=== PATIENT | female | born 1990 | race Caucasian/White ===

== ENCOUNTER 2022-01-01 07:00 | Observation (INO) | payer OTHER, MEDICAID ==
[~2022-01-01] VITALS: Ht 165.1 cm; Wt 68.9 kg
== END 2022-01-01 09:30 | disposition home or self-care (01) ==
LOC: 8 EST LDRP 07:00 → OB TRIAGE 08:37
PROVIDERS: ADMIT Specialist; ATTEND Specialist
DX: O62.9 Abnormality of forces of labor, unspecified (principal); Z3A.37 37 weeks gestation of pregnancy
CPT/HCPCS: 59025; G0378; 99281

== ENCOUNTER 2022-01-26 21:09 | Inpatient (IN) | payer OTHER, MEDICAID ==
[~2022-01-26] VITALS: Ht 165.1 cm; Wt 71.2 kg
[2022-01-26] MEDS ORDERED: BUTORPHANOL TARTRATE 2 MG/ML VIAL IV PRN (22:00)
[2022-01-26] MEDS ORDERED: MISOPROSTOL 100MCG TABLET VG SCH (22:00)
[2022-01-26] MEDS ORDERED: LIDOCAINE HCL 1% 10 MG/ML 10ML VIAL IJ SCH (22:00)
[2022-01-26] MEDS ORDERED: CARBOPROST TROMETHAMINE 250 MCG/ML AMPUL IM PRN (22:15)
[2022-01-26] MEDS ORDERED: NALOXONE HCL 0.4 MG/ML 1ML VIAL IM PRN (22:15)
[2022-01-26] MEDS ORDERED: MISOPROSTOL 100MCG TABLET VG PRN (22:15)
[2022-01-26] MEDS ORDERED: METHYLERGONOVINE MALEATE 0.2 MG/ML IM PRN (22:15)
[2022-01-26] MEDS ORDERED: PENICILLIN G POTASSIUM 5 MMU in DEXT 5% WATER 100 ML IV NR (23:00)
[2022-01-26] MEDS: LACTATED RINGERS 1,000 ML IV SCH (23:23)
[2022-01-27] MEDS: LACTATED RINGERS 1,000 ML IV SCH ×3 (00:12→07:37)
[2022-01-27 00:15] LABS: BASOPHILS % 0.5 % (0.0-2.0); EOSINOPHILS % 0.4 % (0.0-5.0); HEMATOCRIT. 33.8 % (36.0-48.0); HEMOGLOBIN. 11.7 g/dL (12.0-16.0); LYMPHOCYTES % 16.6 % (20.0-50.0); MEAN CORPUSCULAR HEMOGLOBIN 32.7 pg (28.0-32.0); MEAN CORPUSCULAR VOLUME 94.9 fL (81.0-99.0); MEAN PLATELET VOLUME 9.3 fl (7.4-10.4); MONOCYTES % 8.4 % (2.0-8.0); NEUTROPHILS % 74.1 % (40.0-76.0); PLATELET 195 x1000/uL (130-400); RED BLOOD CELL COUNT 3.56 mill/uL (4.2-5.4)
[2022-01-27 00:18] LABS: CLARITY URINE CLEAR (CLEAR); COLOR URINE YELLOW (YELLOW); KETONES URINE TRACE (NEGATIVE); LEUKOCYTE ESTERASE URINE 1+ (NEGATIVE); NITRITE URINE NEGATIVE (NEGATIVE); OCCULT BLOOD URINE 1+ (NEGATIVE); PROTEIN URINE TRACE (NEGATIVE); SPECIFIC GRAVITY URINE 1.023 (1.005-1.030); UROBILINOGEN URINE 0.2 E.U./dL (0.2-1.0)
[2022-01-27 00:37] LABS: *AMPHETAMINES SCREEN URINE NEGATIVE (NEGATIVE); *BARBITURATES SCREEN URINE NEGATIVE (NEGATIVE); *BENZODIAZEPINES SCREEN URINE NEGATIVE (NEGATIVE); *COCAINE SCREEN URINE NEGATIVE (NEGATIVE); CANNABINOID URINE SCREEN NEGATIVE (NEGATIVE); METHADONE URINE SCREEN NEGATIVE (NEGATIVE); OPIATES URINE SCREEN NEGATIVE (NEGATIVE); PHENCYCLIDINE URINE SCREEN NEGATIVE (NEGATIVE)
[2022-01-27 01:36] LABS: INR 0.9; PARTIAL THROMBOPLASTIN TIME 27.6 sec (23.4-31.0); PROTHROMBIN TIME 9.6 sec (9.6-11.0)
[2022-01-27] MEDS ORDERED: PNV1TABL76 PO (02:32)
[2022-01-27] MEDS: PENICILLIN G POTASSIUM 2.5 MMU in DEXTROSE 5% WATER 50 ML IV SCH ×2 (03:25→07:40)
[2022-01-27] MEDS: OXYTOCIN 30 UNITS/500ML NS PMX 500 ML IV SCH ×2 (09:17→11:03)
[2022-01-27] MEDS ORDERED: IBUPROFEN 400MG TABLET PO PRN (11:45)
[2022-01-27] MEDS ORDERED: DIPHENHYDRAMINE 25MG CAPSULE PO PRN (11:45)
[2022-01-27] MEDS ORDERED: GLYCERIN/WITCH HAZEL LEAF MEDICATED PAD TOP PRN (11:45)
[2022-01-27] MEDS ORDERED: BENZOCAINE/LANOLIN/ALOE VERA SPRAY TOP PRN (11:45)
[2022-01-27] MEDS ORDERED: OXYTOCIN 30 UNITS/500ML NS PMX 500 ML IV SCH (11:45)
[2022-01-27 13:30] VITALS: BP 108/64
[2022-01-27] MEDS: IBUPROFEN 800MG TABLET PO PRN ×2 (14:58→21:03)
[2022-01-27] MEDS: LANOLIN OINT 7GM TUBE TOP PRN (14:59)
[2022-01-27 15:20] VITALS: BP 118/70
[2022-01-27 20:30] VITALS: BP 108/72
[2022-01-27 23:51] VITALS: BP 96/57
[2022-01-27] MEDS: OXYCODONE HCL/ACETAMINOPHEN 5/325MG TABLET PO PRN (23:54)
[2022-01-28 06:25] VITALS: BP 104/56
[2022-01-28 06:25] LABS: BASOPHILS % 0.3 % (0.0-2.0); EOSINOPHILS % 0.6 % (0.0-5.0); HEMATOCRIT. 34.8 % (36.0-48.0); MEAN CORPUSCULAR HEMOGLOBIN 32.6 pg (28.0-32.0); MEAN CORPUSCULAR VOLUME 94.9 fL (81.0-99.0); MEAN PLATELET VOLUME 9.2 fl (7.4-10.4); NEUTROPHILS % 73.1 % (40.0-76.0); PLATELET 170 x1000/uL (130-400); RED BLOOD CELL COUNT 3.67 mill/uL (4.2-5.4); RED CELL DISTRIBUTION WIDTH 13.3 % (11.6-14.6)
[2022-01-28] MEDS: FERROUS SULFATE 325MG TABLET PO SCH ×3 (07:30→16:50)
[2022-01-28 08:00] VITALS: BP 97/58
[2022-01-28] MEDS ORDERED: PROPOFOL 200MG/20ML VIAL IV ONE (08:43)
[2022-01-28] MEDS ORDERED: MIDAZOLAM HCL 2 MG/2 ML VIAL ONE (08:45)
[2022-01-28] MEDS ORDERED: FENTANYL CITRATE/PF 50MCG/ML 2ML VIAL ONE ×2 (08:48→10:06)
[2022-01-28] MEDS ORDERED: CEFAZOLIN SODIUM 1000MG/VIAL ONE (09:06)
[2022-01-28] MEDS ORDERED: ONDANSETRON HCL 4MG/2ML INJ ONE (09:06)
[2022-01-28] MEDS ORDERED: DEXAMETHASONE 4MG/ML 1ML VIAL ONE (09:06)
[2022-01-28] MEDS ORDERED: KETOROLAC 60MG/2ML VIAL IM ONE (09:06)
[2022-01-28] MEDS ORDERED: IBUP-2030 PO (09:42)
[2022-01-28] MEDS ORDERED: FERR325T6 MT (09:42)
[2022-01-28] MEDS ORDERED: KETOROLAC 30MG/ML VIAL IV NR (09:45)
[2022-01-28] MEDS ORDERED: ONDANSETRON HCL 4MG/2ML INJ IV PRN (09:45)
[2022-01-28] MEDS ORDERED: DEXT 5%/0.45% NACL KCL 20MEQ/L 1,000 ML IV SCH (10:00)
[2022-01-28] MEDS: IBUPROFEN 800MG TABLET PO PRN (12:04)
[2022-01-28] MEDS: OXYCODONE HCL/ACETAMINOPHEN 5/325MG TABLET PO PRN ×2 (13:15→20:23)
[2022-01-28] MEDS: PRENATAL VIT/FE FUMARATE/FA TABLET PO SCH (13:25)
[2022-01-28 16:00] VITALS: BP 100/60
[2022-01-28] MEDS ORDERED: KETOROLAC 30MG/ML VIAL IV PRN (16:00)
[2022-01-28 20:00] VITALS: BP 107/70
[2022-01-28] MEDS: LANOLIN OINT 7GM TUBE TOP PRN (20:23)
[2022-01-28] MEDS ORDERED: FAMOTIDINE 20MG/2ML VIAL IV SCH (21:00)
[2022-01-29] MEDS: IBUPROFEN 800MG TABLET PO PRN ×2 (03:51→15:40)
[2022-01-29 04:00] VITALS: BP 106/71
[2022-01-29] MEDS ORDERED: DOCU-138 MT (07:20)
[2022-01-29 08:00] VITALS: BP 96/58
[2022-01-29] MEDS: FERROUS SULFATE 325MG TABLET PO SCH (09:11)
[2022-01-29] MEDS: PRENATAL VIT/FE FUMARATE/FA TABLET PO SCH (09:11)
[2022-01-29] MEDS: OXYCODONE HCL/ACETAMINOPHEN 5/325MG TABLET PO PRN (09:19)
== END 2022-01-29 18:26 | disposition home or self-care (01) | DRG 798 ==
LOC: 8 EST LDRP 21:09 → OBSVTOIN 21:09 → 8EST 01-27 14:55
PROVIDERS: ADMIT Specialist; ATTEND Specialist
PROC: 10E0XZZ Delivery of Products of Conception, External Approach (ICD-10-PCS; principal; 2022-01-27)
PROC: 0KQM0ZZ Repair Perineum Muscle, Open Approach (ICD-10-PCS; 2022-01-27)
PROC: 0UB70ZZ Excision of Bilateral Fallopian Tubes, Open Approach (ICD-10-PCS; 2022-01-28)
DX: O48.0 Post-term pregnancy (principal); Z37.0 Single live birth; Z3A.41 41 weeks gestation of pregnancy; O99.824 Streptococcus B carrier state complicating childbirth; Z20.822 Contact with and (suspected) exposure to COVID-19; O70.1 Second degree perineal laceration during delivery; Z30.2 Encounter for sterilization
CPT/HCPCS: 36415; 76805; 76818; 80305; 81003; 85025; 86592; 86703; 86762; 86850; 86900; 87340; 87426; 88302; 99281; G0378; J0595; J0690; J1100; J1885; J2250; J2405; J2540; J2704; J3010; J3490; J7060; J2590